=== PATIENT | male | born 1955 | race Caucasian/White ===

== ENCOUNTER 2017-12-31 10:57 | Emergency (ER) | payer OTHER ==
[2017-12-31 11:02] VITALS: BP 129/76
--- NOTE | 2017-12-31 11:10 | EDPHY ---
H & P Stated Complaint: floaters and flashes of light r eye since tuesday Time Seen by Provider: 12/31/17 11:10 HPI/ROS: CHIEF COMPLAINT: Right eye flashers and floaters HISTORY OF PRESENT ILLNESS: The patient presents to the ED with complaints of intermittent flashes in his right eye with a new floater. He reports very subjective blurry vision in his lateral visual field from that eye. He denies any central vision loss. He reports his visual acuity is at baseline. The patient denies any history of fall or trauma. He denies additional acute complaints. REVIEW OF SYSTEMS: A comprehensive 10 point review of systems is otherwise negative aside from elements mentioned in the history of present illness. Source: Patient - Personal History Current Tetanus Diphtheria and Acellular Pertussis (TDAP): Yes - Medical/Surgical History Hx Asthma: No Hx Chronic Respiratory Disease: No Hx Diabetes: No Hx Cardiac Disease: No Hx Renal Disease: No Hx Cirrhosis: No Hx Alcoholism: No Hx HIV/AIDS: No Hx Splenectomy or Spleen Trauma: No Other PMH: shoulder surg cervical fusion - Social History Smoking Status: Current every day smoker - Physical Exam Exam: Visual Acuity: noted from Nurse's notes. Pupils: equal round and reactive to light EOMI Skin: no proptosis, no periorbital erythema or swelling, no vesicles Conjunctivae: not injected, no discharge Cornea: exam with fluorescein shows Anterior chamber: normal, no hyphema or hypopyon Constitutional: Initial Vital Signs Temperature (C) 37 C 12/31/17 11:00 Heart Rate 71 12/31/17 11:00 Respiratory Rate 18 12/31/17 11:00 Blood Pressure 129/76 H 12/31/17 11:00 O2 Sat (%) 96 12/31/17 11:00 O2 Delivery Mode Room Air Allergies/Adverse Reactions: No Known Allergies Allergy (Unverified 12/31/17 11:00) Home Medications: Medication Instructions Recorded NK [No Known Home Meds] 12/31/17 Medical Decision Making ED Course/Re-evaluation: Limited bedside ultrasound demonstrates no large retinal detachment. This study was performed by myself. Consultation was made with Dr. Fall who is happy to see the patient on Tuesday for a formal dilated eye exam. The patient has been instructed to contact the on-call production control scheduler for any progressive vision loss this weekend. Departure - Departure Disposition: Home, Routine, Self-Care Clinical Impression: Floaters in visual field Qualifiers: Laterality: right Qualified Code(s): H43.391 - Other vitreous opacities, right eye Condition: Good Instructions: Visual Floaters (ED) Additional Instructions: Please contact the production control scheduler you have been referred to on Tuesday for a follow-up visit in further evaluation. Please contact their office at any time this weekend should you developed any vision loss in the right eye. The production control scheduler can be paged emergently 24 hr a day through their office and can offer further assistance. Referrals: Urvashi Fall MD [Medical Doctor] - As per Instructions
== END 2017-12-31 11:50 | disposition home or self-care (01) ==
DX: H43.391 Other vitreous opacities, right eye (principal); F17.210 Nicotine dependence, cigarettes, uncomplicated